=== PATIENT | female | born 1955 | race Caucasian/White ===

== ENCOUNTER → 2024-02-25 | Outpatient (CLI) | payer MEDICARE, BC, SELFPAY ==
[2024-02-25 07:51] LABS: Collection Type, Urine Clean Catch
[2024-02-25 08:39] LABS: Bilirubin,Urine Negative (Negative); Blood,Urine Negative (Negative); Clarity,Urine Clear (Clear/Hazy); Color,Urine Lt-Yellow (Lt Yel-Yel); Glucose, Urine Negative (Negative); Ketones,Urine Negative (Negative); Leukocyte Esterase,Urine Negative (Negative); Nitrite,Urine Negative (Negative); Protein,Urine Negative (Neg - Trace); RBC,Urine 1 /hpf (0-3); Specific Gravity,Urine 1.014 (1.001-1.035); Squamous Epithelial Cell,Urine 1 /hpf (0-5); Urobilinogen,Urine Negative mg/dL (0.0-1.0); WBC,Urine 1 /hpf (0-5)
[2024-02-25 08:50] LABS: Basophils # (Auto) 0.1 Thou/mm3 (0.0-0.2); Basophils % (Auto) 1 % (0-2.5); Eosinophils # (Auto) 0.2 Thou/mm3 (0.0-0.5); Eosinophils % (Auto) 3 % (0-10); Glucose Estimated Average 183 mg/dL (80-131); Hematocrit 42.9 % (36.0-46.0); Hemoglobin 13.8 g/dL (12.0-16.0); Immature Granulocytes % (Auto) 0 % (0-0); Immature Granulocytes Auto 0.03 Thou/mm3 (0.00-0.00); Lymphocytes # (Auto) 1.4 Thou/mm3 (1.0-4.8); Lymphocytes % (Auto) 21 % (10-50); Mean Corpuscular HGB Conc 32.2 g/dl (31.0-37.0); Mean Corpuscular Hemoglobin 26.5 pg (25.0-35.0); Mean Corpuscular Volume 83 fL (80-100); Monocytes # (Auto) 0.5 Thou/mm3 (0.0-0.8); Monocytes % (Auto) 7 % (0-12); Neutrophils # (Auto) 4.6 Thou/mm3 (1.8-7.7); Neutrophils % (Auto) 68 % (37-80); Nucleated Red Blood Cell % 0 /100 WBC (0); Platelet Count 201 Thou/mm3 (140-440); RDW Standard Deviation 41.5 fL (36.4-46.3); White Blood Count 6.8 Thou/mm3 (3.6-11.0)
[2024-02-25 08:51] LABS: Creatinine MALB Rnd Ur 55 mg/dL (30-125); Microalbumin Creat Ratio 11 mg/gCrea (<30); Microalbumin, Random Urine 6 mg/L (0-300)
[2024-02-25 09:00] LABS: Alanine Aminotransferase 22 U/L (10-49); Albumin, Serum 4.6 gm/dL (3.4-4.8); Albumin/Globulin Ratio 2.2 (1.2-2.2); Alkaline Phosphatase 72 U/L (46-116); Anion Gap 8 (7-16); Aspartate Amino Transferase 15 U/L (0-34); BUN/Creatinine Ratio 26 Ratio (12-20); Bilirubin,Total 0.4 mg/dL (0.3-1.2); Blood Urea Nitrogen 18 mg/dL (9-23); Calcium 9.4 mg/dL (8.3-10.6); Calcium (Corrected) 9.4 mg/dL (8.5-10.1); Cardiac Risk Estimate 3.3 RATIO (3.7-5.6); Chloride 105 mMol/L (98-107); Cholesterol 150 mg/dL (132-200); Creatinine (Component) 0.7 mg/dL (0.6-1.3); Globulin 2.1 gm/dL (2.3-3.5); Glucose 181 mg/dL (74-106); HDL Cholesterol 45 mg/dL (40-60); LDL Cholesterol,Calculated 75 mg/dL (0-130); Osmolality,Calculated 286 (275-295); Potassium 3.9 mMol/L (3.4-5.1); Sodium 140 mMol/L (136-145); Total Protein 6.7 gm/dL (5.7-8.2); Triglycerides 148 mg/dL (30-150); eGFR > 60 See Note
== END | disposition home or self-care (01) ==
LOC: COPL 06:48
PROVIDERS: PCP Internal Medicine; Referring Provider Internal Medicine; Visit Provider Internal Medicine
DX: E11.9 Type 2 diabetes mellitus without complications (principal); I10 Essential (primary) hypertension; E78.5 Hyperlipidemia, unspecified
CPT/HCPCS: 36415; 80053; 80061; 81001; 82043; 82570; 83036; 85025

== ENCOUNTER → 2024-07-24 | Outpatient (CLI) | payer MEDICARE, BC, SELFPAY ==
[2024-07-24 08:09] LABS: Collection Type, Urine Clean Catch
[2024-07-24 08:41] LABS: Basophils # (Auto) 0.1 Thou/mm3 (0.0-0.2); Basophils % (Auto) 1 % (0-2.5); Eosinophils # (Auto) 0.1 Thou/mm3 (0.0-0.5); Eosinophils % (Auto) 2 % (0-10); Hemoglobin 14.1 g/dL (12.0-16.0); Immature Granulocytes % (Auto) 0 % (0-0); Immature Granulocytes Auto 0.02 Thou/mm3 (0.00-0.00); Lymphocytes # (Auto) 1.5 Thou/mm3 (1.0-4.8); Lymphocytes % (Auto) 25 % (10-50); Mean Corpuscular HGB Conc 32.8 g/dl (31.0-37.0); Mean Corpuscular Hemoglobin 26.5 pg (25.0-35.0); Mean Corpuscular Volume 81 fL (80-100); Monocytes # (Auto) 0.5 Thou/mm3 (0.0-0.8); Monocytes % (Auto) 8 % (0-12); Neutrophils # (Auto) 3.7 Thou/mm3 (1.8-7.7); Neutrophils % (Auto) 63 % (37-80); Nucleated Red Blood Cell % 0 /100 WBC (0); Platelet Count 207 Thou/mm3 (140-440); RDW Standard Deviation 39.8 fL (36.4-46.3); Red Blood Count 5.32 Miln/mm3 (4.00-5.20); White Blood Count 5.8 Thou/mm3 (3.6-11.0)
[2024-07-24 08:55] LABS: Bilirubin,Urine Negative (Negative); Blood,Urine Negative (Negative); Clarity,Urine Clear (Clear/Hazy); Color,Urine Lt-Yellow (Lt Yel-Yel); Glucose, Urine 4+ (Negative); Ketones,Urine Negative (Negative); Leukocyte Esterase,Urine Positive (Negative); Nitrite,Urine Negative (Negative); Protein,Urine Negative (Neg - Trace); RBC,Urine 1 /hpf (0-3); Squamous Epithelial Cell,Urine 1 /hpf (0-5); Urobilinogen,Urine Negative mg/dL (0.0-1.0); WBC,Urine 5 /hpf (0-5)
[2024-07-24 08:55] LABS: Alanine Aminotransferase 28 U/L (10-49); Albumin, Serum 4.7 gm/dL (3.4-4.8); Alkaline Phosphatase 73 U/L (46-116); Anion Gap 11 (7-16); Aspartate Amino Transferase 30 U/L (0-34); BUN/Creatinine Ratio 18 Ratio (12-20); Bilirubin,Total 0.4 mg/dL (0.3-1.2); Blood Urea Nitrogen 14 mg/dL (9-23); Calcium 9.1 mg/dL (8.3-10.6); Calcium (Corrected) 9.1 mg/dL (8.5-10.1); Carbon Dioxide 26.1 mMol/L (20.0-31.0); Cardiac Risk Estimate 3.3 RATIO (3.7-5.6); Chloride 108 mMol/L (98-107); Cholesterol 146 mg/dL (132-200); Creatinine (Component) 0.8 mg/dL (0.6-1.3); Globulin 2.3 gm/dL (2.3-3.5); Glucose 132 mg/dL (74-106); HDL Cholesterol 44 mg/dL (40-60); LDL Cholesterol,Calculated 66 mg/dL (0-130); Osmolality,Calculated 291 (275-295); Potassium 4.6 mMol/L (3.4-5.1); Sodium 145 mMol/L (136-145); Triglycerides 182 mg/dL (30-150); eGFR > 60 See Note
[2024-07-24 09:20] LABS: Creatinine MALB Rnd Ur 62 mg/dL (30-125); Microalbumin Creat Ratio 53 mg/gCrea (<30); Microalbumin, Random Urine 33 mg/L (0-300)
[2024-07-24 09:53] LABS: Glucose Estimated Average 177 mg/dL (80-131); Hemoglobin A1C 7.8 % Hgb (4.8-6.0)
== END | disposition home or self-care (01) ==
PROVIDERS: PCP Internal Medicine; Referring Provider Internal Medicine; Visit Provider Internal Medicine
DX: E11.9 Type 2 diabetes mellitus without complications (principal); I10 Essential (primary) hypertension; E78.5 Hyperlipidemia, unspecified
CPT/HCPCS: 36415; 80053; 80061; 81001; 82043; 82570; 83036; 85025

== ENCOUNTER → 2024-12-11 | Outpatient (CLI) | payer MEDICARE, BC, SELFPAY ==
--- NOTE | 2024-12-11 14:30 | XR_ITS ---
Examination: Screening digital mammography, bilateral Computer aided detection 3-D breast Tomosynthesis, bilateral Date and time of exam: December 11, 2024, 1402 hours, compared to mammograms dating to September 08, 2018 Indication: Screening Technique: Nonmagnified MLO, CC views of the breasts to been obtained, reconstructed from 3-D Tomosynthesis images. R2 computer aided detection program utilized for evaluation of suspicious masses and/or abnormal calcifications. 3-D Tomosynthesis images obtained. Findings: Scattered areas of fibroglandular density. Stable architectural distortion upper left breast consistent with patient's history of treated left breast cancer Benign calcifications. No interval suspicious masses Impression: BI-RADS category II: Benign Findings. Recommend 1 year follow-up mammogram.
== END | disposition home or self-care (01) ==
LOC: CDIM 13:53
PROVIDERS: Referring Provider Internal Medicine; Visit Provider Internal Medicine
DX: Z12.31 Encounter for screening mammogram for malignant neoplasm of breast (principal); R92.323 Mammographic fibroglandular density, bilateral breasts; R92.1 Mammographic calcification found on diagnostic imaging of breast
CPT/HCPCS: 77063; 77067

== ENCOUNTER 2025-01-20 09:25 | Emergency (ER) | payer MEDICARE, BC, SELFPAY ==
[2025-01-20 09:52] VITALS: BP 153/84; PULSE 80; RESP 18; TEMP 37; O2SAT 95; BMI 28.2
--- NOTE | 2025-01-20 10:20 | PD.EDRME ---
Rapid Medical Screening Exam RME Arrival date/time: 01/20/25 09:25 Chief Complaint: General Adult/Misc Complain Time Seen by Provider: 01/20/25 09:56 Vital signs: Vital Signs Temperature 98.6 F 01/20/25 09:52 Pulse Rate 80 01/20/25 09:52 Respiratory Rate 18 01/20/25 09:52 Blood Pressure 153/84 H 01/20/25 09:52 Pulse Oximetry (%) 95 01/20/25 09:52 Oxygen Delivery Method Room Air 01/20/25 09:52 RME Narrative: 69-year-old diabetic female accidentally injected 300 units of Toujeo thinking it was a dose of her Ozempic. States she called PCP Dr. Marti and was told to immediately come to the ER. This injection was 3 hours ago. RBS on her glucose monitor 182 during triage. Was told she would need to be observed for some time. No sweating no seizures. Exam: no acute findings Clinical Impression: Insulin overdose versus hypoglycemia
[2025-01-20 10:44] LABS: Collection Type, Urine Clean Catch
[2025-01-20 10:45] LABS: Base Excess, Venous -2 (-3-3); O2 Saturation, Venous 85 % (96-97); PCO2, Venous 39 mmHg (36-56); PO2, Venous 59 mmHg (15-58); pH, Venous 7.38 (7.33-7.66)
[2025-01-20 10:47] LABS: Basophils # (Auto) 0.1 Thou/mm3 (0.0-0.2); Basophils % (Auto) 1 % (0-2.5); Eosinophils # (Auto) 0.1 Thou/mm3 (0.0-0.5); Eosinophils % (Auto) 2 % (0-10); Hematocrit 44.5 % (36.0-46.0); Hemoglobin 14.2 g/dL (12.0-16.0); Immature Granulocytes Auto 0.03 Thou/mm3 (0.00-0.00); Lactate (Lactic Acid) 1.6 mMol/L (0.4-2.0); Lymphocytes # (Auto) 1.4 Thou/mm3 (1.0-4.8); Lymphocytes % (Auto) 20 % (10-50); Mean Corpuscular HGB Conc 31.9 g/dl (31.0-37.0); Mean Corpuscular Hemoglobin 26.1 pg (25.0-35.0); Mean Corpuscular Volume 82 fL (80-100); Monocytes # (Auto) 0.4 Thou/mm3 (0.0-0.8); Monocytes % (Auto) 5 % (0-12); Neutrophils # (Auto) 5.1 Thou/mm3 (1.8-7.7); Neutrophils % (Auto) 72 % (37-80); Nucleated Red Blood Cell # 0.00 Thou/mm3 (0.00-0.00); Nucleated Red Blood Cell % 0 /100 WBC (0); Platelet Count 219 Thou/mm3 (140-440); RDW Standard Deviation 40.4 fL (36.4-46.3); Red Blood Count 5.44 Miln/mm3 (4.00-5.20); White Blood Count 7.1 Thou/mm3 (3.6-11.0)
--- NOTE | 2025-01-20 10:50 | PD.EDRECHK ---
ED Recheck Abnl Lab Rx-RME/HPI General Chief Complaint: General Adult/Misc Complain Stated Complaint: ACCIDENTALLY TOOK 300U OF INSULIN Time Seen by Provider: 01/20/25 09:56 Arrival date/time: 01/20/25 09:25 Limitations: no limitations RME / HPI RME / HPI narrative: 69-year-old diabetic female accidentally injected 300 units of Toujeo thinking it was a dose of her Ozempic. States she called PCP Dr. Marti and was told to immediately come to the ER. This injection was 3 hours ago. RBS on her glucose monitor 182 during triage. Was told she would need to be observed for some time. No sweating no seizures. DR. HERRERA MAIN ED EVALUATION: 69-year-old diabetic female presents after accidentally injecting 160 units of Toujeo, believing she was taking her usual dose of Ozempic. She states she contacted her PCP, Dr. Garrido, who instructed her to come to the Emergency Department immediately. The injection occurred approximately 3 hours prior to arrival, so about at 7 AM. Her home glucose monitor showed a reading of 182 during triage. She reports no sweating, no seizures, and no other symptoms. She states she is only anxious. She confirms she was supposed to take 30 units, not 160. No current complaints. Past medical history includes myocardial infarction with stent placement in [address] Cordero, breast cancer in remission for 7 years, type 2 diabetes mellitus, left lumpectomy, and tubal ligation. She has a codeine allergy. Related Data Home Medications ?Medication ?Instructions ?Recorded ?Confirmed gabapentin 300 mg capsule 300 mg PO BID #0 caps 07/04/15 02/10/20 levothyroxine 50 mcg tablet 50 mcg PO QDAY 04/08/17 02/10/20 (Synthroid) liraglutide 0.6 mg/0.1 mL (18 mg/3 1.8 mg subcut QDAY 01/21/19 02/10/20 mL) subcutaneous pen injector (Victoza 3-Ramin) lisinopril 10 mg tablet 10 mg PO QDAY 01/21/19 02/10/20 aspirin 81 mg tablet 81 mg PO QDAY 02/10/20 02/10/20 atorvastatin 80 mg tablet 80 mg PO QDAY 02/10/20 02/10/20 empagliflozin 10 mg tablet 10 mg PO QDAY 02/10/20 02/10/20 (Jardiance) fenofibrate 160 mg tablet 160 mg PO HS 02/10/20 02/10/20 glipizide 5 mg-metformin 500 mg 1 tab PO BID 02/10/20 02/10/20 tablet metoprolol succinate 50 mg 50 mg PO BID 02/10/20 02/10/20 tablet,extended release 24 hr semaglutide 0.25 mg or 0.5 mg (2 0.5 mg subcut QWEEK 02/10/20 02/10/20 mg/1.5 mL) subcutaneous pen injector (Ozempic) Previous Rx's ?Medication ?Instructions ?Recorded dexamethasone 6 mg tablet 6 mg PO QDAY #7 tabs 02/12/20 (Decadron) Allergies Allergy/AdvReac Type Severity Reaction Status Date / Time codeine Allergy Severe Rash Verified 02/09/20 14:52 Review of Systems Review of Systems Systems Reviewed: All systems reviewed, normal except as documented Past Medical History Past Medical History CARDIAC: Positive Cardiac Disorders, Myocardial Infarction and Hypertension REPRODUCTIVE: Positive Breast Cancer and Previous Pregnancies ENDOCRINE: Positive Endocrine Disorders, Diabetes Mellitus Type 2 and Hypothyroidism OTHER HISTORY: Positive Shingles, Radiation Therapy, Chicken Pox and Breast Cancer Family History FAMILY HISTORY: Positive Family Cardiac Disorders and Family Cancer Surgical History SURGICAL: Positive Cardiac Surgery, Coronary Stent, Lumpectomy and Tubal Ligation Social History SMOKING STATUS: Never smoker SECOND HAND EXPOSURE: No SUBSTANCE USE: does not use ED Exam General Limitations: Present no limitations General appearance: Present alert and in no apparent distress Head Head exam: Present atraumatic, normocephalic and normal inspection Eye Eye exam: Present normal appearance, PERRL and EOMI ENT ENT exam: Present normal exam, normal oropharynx and mucous membranes moist Neck Neck exam: Present normal inspection, full ROM and trachea midline Chest Chest inspection: Present normal inspection and symmetric chest wall rise Respiratory Respiratory exam: Present normal lung sounds bilaterally Cardiovascular Cardiovascular exam: Present regular rate, normal rhythm and normal heart sounds Abdominal Exam Abdominal exam: Present soft and normal bowel sounds Extremities Exam Extremities exam: Present normal inspection and full ROM Back Exam Back exam: Present normal inspection and full ROM Neurological Exam Neurological exam: Present alert, oriented X3 and CN II-XII intact Psychiatric Psychiatric exam: Present normal affect and normal mood Skin Skin exam: Present warm, dry, intact and normal color Course Quality Measures none Orders Category Date Time Status Fingerstick [Bedside Blood Glucose] Q1HR Care 01/20/25 10:43 Completed IV [Insert IV] NOW Care 01/20/25 10:22 Completed Diet Regular Diet 01/20/25 Lunch Active CBC Stat Lab 01/20/25 10:30 Completed CMP [Comprehensive Metabolic Panel] Stat Lab 01/20/25 10:30 Completed Lactic Acid [Lactate (Lactic Acid)] Stat Lab 01/20/25 10:30 Completed UA [Urinalysis] Stat Lab 01/20/25 10:38 Completed VBG [Venous Blood Gas] Stat Lab 01/20/25 10:30 Completed Vital Signs Vital signs: Vital Signs Temperature 98.6 F 01/20/25 09:52 Pulse Rate 80 01/20/25 09:52 Respiratory Rate 18 01/20/25 09:52 Blood Pressure 153/84 H 01/20/25 09:52 Pulse Oximetry (%) 95 01/20/25 09:52 Oxygen Delivery Method Room Air 01/20/25 09:52 Recheck / Abnormal Lab / Rx MDM Narrative MDM Narrative:: IDaisha am scribing for and in the presence of Dr. Herrera. 69-year-old diabetic female with accidental injection of 160 units of Toujeo instead of intended 30 units. Exam normal. Differential diagnoses include hypoglycemia, medication error without physiologic effect, and anxiety reaction. Impression is accidental insulin overdose. Labs, EKG, and chest X ray were normal. Glucose in triage was 182. Plan is to monitor for 3 hours and if no symptoms develop patient will be discharged home. Patient stable at this time with no symptoms other than anxiety. 1206: Blood glucose is 230. Plan is to send her home and have the patient check her blood sugar every hour until 6 PM. Also, recommended not to take her diabetes medications today. Patient data External records reviewed:: [facility] previous records Clinical information provided by:: patient Social determinants that could affect healthcare access:: none Patient has the following chronic illnesses:: Past medical history includes myocardial infarction with stent placement in [address] Codrero, breast cancer in remission for 7 years, type 2 diabetes mellitus, left lumpectomy, and tubal ligation. She has a codeine allergy. How is presenting disease/condition affected by chronic disease/condition?: uneffected by Evaluation data The following diagnostics were reviewed and interpreted by me:: lab results Lab and/or radiology exams considered but not ordered:: none Interpretation Summary: See MDM narrative above. Medications / Prescriptions Medications or Prescriptions considered but not ordered:: none Medication administrations:: see above if any Consultations Consultation(s) initiated? (list below): No Diagnosis Recheck Differential Diagnosis: other (hypoglycemia, medication error without physiologic effect, and anxiety reaction) Most likely diagnosis given after review of the tests above:: Diabetes Accidental overdose of insulin Admission Indicated Admission indicated?: not indicated Admission Request Was there a request for admission?: No Disposition Plan Disposition Plan: Discharge Discharge Attestation Discharge Attestation: The patient and all family members were given an opportunity to ask questions and understood the discharge instructions. Discharge instructions specifically effects, indications for sooner follow up or return to the emergency department, and the expected course of current diagnosis. Patient condition: Stable Discharge Plan Plan Patient Disposition: HOME (Self Care) Patient condition on transfer: Stable Prescriptions/Referrals Prescriptions/Med Rec: No Action gabapentin 300 MG capsule 300 mg PO BID Qty: 0 levothyroxine [Synthroid] 50 mcg Tablet 50 mcg PO QDAY lisinopril 10 mg Tablet 10 mg PO QDAY Rx Instructions: PATIENT TAKES @ 1PM EVERY DAY Victoza 3-Ramin 0.6 mg/0.1 mL (18 mg/3 mL) Pen Injector 1.8 mg SUBCUT QDAY Patient Comments: pt states not currently taking aspirin 81 mg Tablet 81 mg PO QDAY atorvastatin 80 mg Tablet 80 mg PO QDAY fenofibrate 160 mg Tablet 160 mg PO HS metoprolol succinate 50 mg Tablet Extended Release 24 Hr 50 mg PO BID Ozempic 0.25 mg or 0.5 mg(2 mg/1.5 mL) Pen Injector 0.5 mg SUBCUT QWEEK Rx Instructions: PATIENT TAKES EVERY WEDNESDAY glipizide-metformin 5-500 mg Tablet 1 tab PO BID Jardiance 10 mg Tablet 10 mg PO QDAY dexamethasone [Decadron] 6 mg tablet 6 mg PO QDAY Qty: 7 0RF Referrals: No Primary/Family,Physician [Referring Provider] - In 1 week Problem List Clinical Impression: Diabetes, Accidental overdose of insulin Patient/Caregiver Discharge Instructions Other Activity Instructions:: Do not take any of the diabetes medications today Check blood sugar every hour from now until 7 PM If your sugar goes below 140 then take a snack If your sugar stays above 140 then you can stop the sugar check every hour and make it every 4 hours Tomorrow you can restart your medication as usual Education Materials: Types of Insulin, Managing Your Glucose Level for ..., ED Diabetic Insulin Reaction Print Language: Kyrgyz Stand Alone Forms: Ynes Award Info., Patient Portal Info Letter
[2025-01-20 11:04] LABS: Alanine Aminotransferase 25 U/L (10-49); Albumin, Serum 4.8 gm/dL (3.4-4.8); Albumin/Globulin Ratio 2.1 (1.2-2.2); Alkaline Phosphatase 67 U/L (46-116); Anion Gap 10 (7-16); Aspartate Amino Transferase 24 U/L (0-34); BUN/Creatinine Ratio 14 Ratio (12-20); Bilirubin,Total 0.4 mg/dL (0.3-1.2); Blood Urea Nitrogen 10 mg/dL (9-23); Calcium 9.7 mg/dL (8.3-10.6); Calcium (Corrected) 9.7 mg/dL (8.5-10.1); Carbon Dioxide 22.2 mMol/L (20.0-31.0); Chloride 109 mMol/L (98-107); Creatinine (Component) 0.7 mg/dL (0.6-1.3); Estimated Creatinine Clearance 80.6 mL/min (>60); Globulin 2.3 gm/dL (2.3-3.5); Glucose 193 mg/dL (74-106); Osmolality,Calculated 285 (275-295); Potassium 4.0 mMol/L (3.4-5.1); Sodium 141 mMol/L (136-145); Total Protein 7.1 gm/dL (5.7-8.2); eGFR > 60 See Note
[2025-01-20 11:30] LABS: Bilirubin,Urine Negative (Negative); Blood,Urine Negative (Negative); Clarity,Urine Clear (Clear/Hazy); Color,Urine Lt-Yellow (Lt Yel-Yel); Glucose, Urine 4+ (Negative); Ketones,Urine Negative (Negative); Leukocyte Esterase,Urine Negative (Negative); Nitrite,Urine Negative (Negative); PH,Urine 5.5 (5.0-7.0); Protein,Urine Negative (Neg - Trace); RBC,Urine < 1 /hpf (0-3); Specific Gravity,Urine 1.018 (1.001-1.035); Squamous Epithelial Cell,Urine < 1 /hpf (0-5); Urobilinogen,Urine Negative mg/dL (0.0-1.0); WBC,Urine < 1 /hpf (0-5)
[2025-01-20 12:00] VITALS: BP 140/86; PULSE 78; RESP 16; TEMP 36.4; O2SAT 95
== END 2025-01-20 12:22 | disposition home or self-care (01) ==
PROVIDERS: Physician Assistant; Emergency Provider Emergency Medicine; PCP Internal Medicine
DX: T38.3X1A Poisoning by insulin and oral hypoglycemic [antidiabetic] drugs, accidental (unintentional), initial encounter (principal); E11.9 Type 2 diabetes mellitus without complications; Z79.85 Long-term (current) use of injectable non-insulin antidiabetic drugs; Z79.84 Long term (current) use of oral hypoglycemic drugs
CPT/HCPCS: 36415; 80053; 81001; 82803; 83605; 85025; 99282